=== PATIENT | male | born 1960 | race Caucasian/White ===

== ENCOUNTER 2016-08-15 06:03 | Emergency (ER) | payer OTHER ==
--- NOTE | 2016-08-15 09:48 | PROVIDER DOCUMENTATION ---
HPI-Male Problem - General Chief Complaint: Abscess Stated Complaint: ABSCESS Time Seen by Provider: 08/15/16 09:11 Source: patient Allergies/Adverse Reactions: Patient Allergies Allergy/AdvReac Type Severity Reaction Status Date / Time No Known Allergies Allergy Verified 08/15/16 09:19 Home Medications: Home Medication List Medication Instructions Recorded Confirmed Last Taken Type Lisinopril 10 mg PO DAILY 01/15/13 08/15/16 05/28/16 History Budesonide/Formoterol Fumarate 10.2 gm IH BID 03/26/16 08/15/16 05/28/16 History [Symbicort 160-4.5 Mcg Inhaler] Metformin E.r. [Glucophage Xr] 1,000 mg PO QPM 03/26/16 08/15/16 05/28/16 History Sulfamethoxazole/Trimethoprim 1 each PO BID #14 tablet 08/15/16 Unknown Rx [Bactrim Ds Tablet] - History of Present Illness-Male Nature of Presenting Problem: Pt is a 56 y/o M c chief complaint of sore to the R groin x 3 days. Pt has an extensive urological h/o scrotal swelling and is being followed by Dr. Carrera for a scrotal mass. Pt states his scrotum has not changed since his last visit with Dr. Carrera. Pt denies any nausea, vomiting, fever, chills. On arrival, pt is in minimal distress. Review of Systems - Adult - REVIEW OF SYSTEMS - ADULT Constitutional: reports: no symptoms reported. denies: chills, fatique Eyes: reports: no symptoms reported. denies: blurred vision, double vision Ears, Nose, Mouth & Throat: reports: no symptoms reported. denies: ear pain, nose pain Cardiovascular: reports: no symptoms reported. denies: chest pain, irregular heart rate Respiratory: reports: no symptoms reported. denies: cough, shortness of breath Gastrointestinal: reports: no symptoms reported. denies: abdominal pain, nausea Genitourinary: reports: no symptoms reported. denies: dysuria, hematuria Musculoskeletal: reports: no symptoms reported. denies: joint pain, joint swelling Integumentary: reports: see HPI, skin sores/ulcer. denies: hives, itching, rash Neurological: reports: no symptoms reported. denies: numbness, paresthesia Psychiatric: reports: no symptoms reported. denies: anxiety, emotional problems Endocrine: reports: no symptoms reported. denies: cold intolerance, heat intolerance Hematologic/Lymphatic: reports: no symptoms reported Allergic/Immunologic: reports: no symptoms reported All Other Systems: Reviewed and Negative Past History - Adult - PAST MEDICAL HISTORY-ADULT Review of Records: reports: Old Records Reviewed, Nursing Assessment Review, Medications Reviewed, Social history reviewed & non-contributory. Major Childhood Illnesses: reports: denies history Cardiovascular: reports: HTN Respiratory: reports: COPD Gastrointestinal: reports: denies history Obstetrical/Gynecological: reports: denies history Genitourinary: reports: testicular injury (testicular mass) Musculoskeletal: reports: denies history Neurological: reports: denies history Endocrine/Immune: reports: Diabetes Other Conditions: reports: denies history - IMMUNIZATION STATUS Childhood Immunizations: See Nurse Assessment Flu Vaccine: See Nurse Assessment - FAMILY HISTORY Family History: reviewed, not pertinent - SOCIAL HISTORY Smoking: denies Substance Use: none/never Alcohol Use Frequency: never Living Situation: family Physical Exam-General - PHYSICAL EXAM-ADULT Initial Vital Signs Reviewed: Yes - CONSTITUTIONAL General Appearance: appears well, alert, no apparent distress - EYES Eyes: PERRL/EOMI, pink conjunctivae - HEAD, EARS, NOSE, MOUTH & THROAT HENMT: normocephalic/atraumatic, moist mucous membranes - NECK Neck: non-tender - RESPIRATORY Respiratory: chest non-tender, lungs clear, normal breath sounds - CARDIOVASCULAR Cardiovascular: normal peripheral pulses, regular rate, rhythm, no edema - GASTROINTESTINAL (ABDOMEN) Abdominal Exam: normal bowel sounds, non tender, soft - GENITOURINARY Male Genitalia: circumcised, scrotal swelling (significant scrotal swelling that pt states is unchanged since his last visit with Dr. Carrera.), inguinal tenderness, other (small localiced hair follicle infection in the R groin, mild inguinal lymphadenopathy). negative: erythema, testicular tenderness - LYMPHATIC Lymphatic: no adenopathy - MUSCULOSKELETAL Back Exam: normal inspection, no CVA tenderness, no vertebral tenderness Extremity: normal range of motion, non-tender, normal gait - SKIN Integumentary: normal color, normal turgor, warm/dry - NEUROLOGIC Neurologic: grossly normal, no motor/sensory deficits - PSYCHIATRIC Psych/Mental Status: normal mood/affect, normal thought content, normal thought process, oriented x 3 Progress - PLAN OF CARE/RESULTS Progress/Plan/Lab Results: Orders Category Date Time Status Finger Stick Blood Sugar (ED) DIRECTED Care 08/15/16 09:47 Active Vital Signs - 24 hr 08/15/16 08/15/16 06:06 10:09 Temperature 98.4 F 98.2 F Pulse Rate 85 72 Respiratory 20 18 Rate Blood Pressure 167/92 166/96 O2 Sat by Pulse 100 98 Oximetry Departure - Departure Time of Disposition Order: 09:44 DIAGNOSIS: Local skin infection, Testicular swelling Disposition: HOME 01 Certified Medical Emergency: Emergent Condition: Stable Additional Instructions: ED Follow Up Instructions: You have been treated by a care provider in the Emergency Department. These instructions are being provided to you so you can have an understanding of how to care for yourself upon discharge. Upon discharge from the Emergency Department, you are responsible for making arrangements for follow-up care by a physician of your choice. Take all prescribed medications as directed. Return to the Emergency Department immediately for any new or worsening symptoms. You may call the Physician Referral phone number at [phone] to obtain a list of Physicians who are taking new patients. Prescriptions: Sulfamethoxazole/Trimethoprim [Bactrim Ds Tablet] 1 each PO BID #14 tablet Referrals: Carlitos Carrera MD [STAFF PHYSICIAN] - Call for Appoint. 1-2days (FOLLOW UP WITH DR. CARRERA ON THURSDAY FOR A RE-CHECK OF YOUR SCROTUM.) Forms: Return to School/Parent Work Instructions: Scrotal Swelling, Insect Bite Attestation - Physician/ ELIJAH Attestation Patient care was provided by Advanced Practice Provider:: Yes Advanced Practice Provider:: Marcos Corcoran Advanced Practice Provider documentation review:: The Mid-level provider documentation, treatment plan and medical decision making was reviewed by the physician who agrees with all treatment and medical decision making by the MLP.
[2016-08-15 10:10] VITALS: BP 166/96
== END 2016-08-15 10:16 | disposition home or self-care (01) ==
LOC: ED 06:03
DX: L08.9 Local infection of the skin and subcutaneous tissue, unspecified (principal); N50.89 Other specified disorders of the male genital organs; R59.0 Localized enlarged lymph nodes; I10 Essential (primary) hypertension; J44.9 Chronic obstructive pulmonary disease, unspecified; E11.9 Type 2 diabetes mellitus without complications; Z79.899 Other long term (current) drug therapy
CPT/HCPCS: 82948

== ENCOUNTER 2019-01-05 13:25 | Observation (INO) ==
[2019-01-05] MEDS ORDERED: NEXIUM IV SCH (15:30)
[2019-01-05 16:18] LABS: BASO# 0.06 X1000 (0.0-0.2); BASO% 0.8 % (0.0-0.8); EOS# 0.23 X1000 (0.0-0.7); EOS% 2.9 % (0.0-10.0); HEMATOCRIT 39.9 % (42.0-52.0); HEMOGLOBIN 13.3 g/dL (14.0-18.0); LYMPH# 2.67 X1000 (1.2-3.4); LYMPH% 33.5 % (20.5-51.1); MCH 29.2 PG (27-31); MCHC 33.3 g/dL (33-37); MCV 87.7 FL (81-99); MONO% 7.5 % (1.7-9.3); MPV 10.7 FL (7.4-10.4); NEUT# 4.42 X1000 (1.4-6.5); NEUT% 55.3 % (42.2-75.2); PLT 376 X1000 (130-400); RBC 4.55 XMIL (4.7-6.1); RDW 13.8 % (11.5-14.5); WBC 7.98 X1000 (4.8-10.8)
[2019-01-05 16:26] LABS: INR 0.9; PROTIME 12.8 Seconds (11.0-16.0)
[2019-01-05 16:27] LABS: PTT 26.9 Seconds (22.3-41.8)
[2019-01-05 16:29] LABS: HEMOGLOBIN A1C 5.9 % (4.8-6.0)
[2019-01-05 16:30] LABS: AGAP 12; ALB/GLOB RATIO 1.5; ALBUMIN 4.1 g/dL (3.5-5.0); ALKALINE PHOSPHATASE 93 U/L (32-122); AMYLASE 51 U/L (20-200); BUN 14 mg/dL (8-22); CALCIUM 9.5 mg/dL (8.8-10.2); CHLORIDE 105 mmol/L (98-107); COSMO 282; CREATININE 0.8 mg/dL (0.7-1.2); ESTIMATED GFR > 60; GLUCOSE 110 mg/dL (70-104); GOT 16 U/L (10-34); GPT 16 U/L (10-44); LIPASE 20 U/L (13-60); POTASSIUM 4.1 mmol/L (3.5-5.1); SODIUM 141 mmol/L (136-145); TCO2 24 mmol/L (25-35); TOTAL BILIRUBIN 0.39 mg/dL (0.20-1.00); TOTAL PROTEIN 6.9 g/dL (6.3-8.3)
[2019-01-05] MEDS: NS 1,000 ML IV SCH (16:49)
[2019-01-05 16:52] LABS: URINE SOURCE CLEAN CATCH
[2019-01-05 16:58] LABS: BILIRUBIN URINE NEGATIVE (NEGATIVE); BLOOD URINE SMALL (NEGATIVE); COLOR YELLOW; GLUCOSE URINE NEGATIVE (NEGATIVE); KETONE URINE NEGATIVE (NEGATIVE); LEUKOCYTES URINE NEGATIVE (NEGATIVE); NITRITE URINE NEGATIVE (NEGATIVE); PH URINE 5.5; PROTEIN URINE NEGATIVE (NEGATIVE); SP GRAVITY URINE 1.022; TURBIDITY URINE CLEAR (CLEAR); UR EPITHELIAL CELLS <10 /HPF (<10); URINE BACTERIA NEGATIVE /HPF; URINE RBC <10 /HPF (<10); URINE WBC <10 /HPF (<10); UROBILINOGEN URINE NORMAL (NORMAL)
--- NOTE | 2019-01-05 17:36 | Diag Imaging Result Doc PS360 ---
CT ABDOMEN W/CONTRAST - 01/05/2019 INDICATION: abdominal pain COMPARISON: 07/17/2018 FINDINGS: The lung bases are clear and the heart size is normal. There is stable mild fatty change of the liver. There is a stable benign cyst at the hepatic hilum. Otherwise all abdominal organs are normal. No bowel obstruction or inflammation. Minimal diverticulosis of the descending colon. There are moderate degenerative changes of the spine. No acute or suspicious bony lesion. IMPRESSION: No acute disease or change from prior. Mild fatty liver. Mild diverticulosis coli. This exam was performed using automated exposure control, adjustment of mA or kV according to patient size, and/or use of iterative reconstruction technique Electronically signed by López Fisher 01/05/2019 5:34 PM
--- NOTE | 2019-01-05 17:40 | Diag Imaging Result Doc PS360 ---
ABDOMEN FLAT/UPRIGHT - 01/05/2019 INDICATION: abdominal pain COMPARISON: 09/12/2018 FINDINGS: There is a nonobstructive bowel gas pattern. No free air or abdominal calcifications. No constipation. IMPRESSION: No acute disease. Electronically signed by López Fisher 01/05/2019 5:38 PM
[2019-01-05] MEDS ORDERED: VENTOLIN HFA INH PRN (17:47)
[2019-01-05] MEDS ORDERED: NICODERM PATCH TD ONE (20:44)
[2019-01-05] MEDS ORDERED: DILAUDID IV PRN (20:48)
[2019-01-05] MEDS ORDERED: ZOFRAN IV PRN (20:50)
--- NOTE | 2019-01-05 21:32 | HISTORY AND PHYSICAL ---
CHIEF COMPLAINT: Abdominal pain. HISTORY OF PRESENT ILLNESS: Mr. Philippe is a 58-year-old gentleman, complaining of pain in the abdomen going on for 2 to 3 days. The pain is off and on, moderate in intensity. The patient described pain as a burning stinging pain, at times unbearable, associated with some nausea and sick feeling, but no vomiting. The patient denied any diarrhea. No blood or mucus in the stool. The patient was taking [id number] medication without significant relief. The patient had this pain off and on in the past. He did have a CT scan done, upper and lower GI endoscopy done which revealed significant degenerative disk disease in the lumbar spine and spinal stenosis. The patient had gastritis and diverticular disease of the colon. The patient was crying with the pain in my office. I evaluated the patient and decided to admit him for observation. The patient does have urinary frequency, urgency, but no dysuria or hematuria. He does have polyuria and polydipsia. Denied any diarrhea blood or mucus in the stool. No abdominal distention. No typical chest pain or palpitation. Patient does have chronic cough with scanty sputum production. No hemoptysis. No major weight loss or weight gain. No heat or cold intolerance. The patient denied any focal numbness, tingling or weakness. He does have a history suggestive of BPH and urinary hesitancy. ALLERGIES: No known drug allergy. HOME MEDICATIONS: Includes Prilosec, Neurontin, lisinopril, Flomax. The patient is on Glucophage. PAST MEDICAL HISTORY: NIDDM, hypertension, gastritis, degenerative disk disease in the lower back and cervical spine, gastritis, obesity, anxiety and depression. PERSONAL HISTORY: Single. The patient does smoke. Denied alcohol or substance abuse. FAMILY HISTORY: Noncontributory. REVIEW OF SYSTEMS: As per HPI. PHYSICAL EXAMINATION: GENERAL: Middle-aged white gentleman in mild distress. The rest from the chart. HEENT: Head atraumatic, normocephalic. [place] conjunctivae. Anicteric sclerae. Extraocular muscle movement normal. Fundus cannot be penetrated. Good oral hygiene. No tonsillopharyngeal congestion or exudate. Ears and nose benign. NECK: Supple. No JVD, thyromegaly or lymphadenopathy. CHEST: Bilateral good air entry present. Bibasilar crepitation. Occasional wheezing. No rales or rhonchi. CARDIOVASCULAR: S1 and S2 heard. No gallop or thrill. ABDOMEN: Soft, globular. Bowel sounds present. No organomegaly or mass. Mild epigastric tenderness. No guarding or rigidity. EXTREMITIES: No cyanosis, clubbing. No acute DVT. Peripheral pulsation intact. 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 BACK: Vague tenderness lumbosacral spine. CONSIDERATION: 1. Abdominal pain. Etiology not clear. Differential includes gastritis, pancreatitis. 2. I reviewed his old records. The patient does have a significant degenerative disk disease. Spinal stenosis. Possibility of the radicular pain cannot be ruled out. His other problem includes chronic obstructive pulmonary disease, hypertension, noninsulin-dependent diabetes mellitus, anxiety and depression. PLAN: Admit the patient. We will get a CT scan of the abdomen and pelvis, plain x-ray. Symptomatic treatment. The encourage patient to quit smoking. Overall plan discussed with the patient and he is in agreement. LABORATORY DATA: Revealed WBC count 7.98, hemoglobin 13.3, hematocrit 39.9, platelet count was 376,000. PT/INR 0.9. PTT 26.9. Electrolytes fairly benign. Amylase and lipase were normal. Urinalysis did have small amount of blood. I did CT scan of the abdomen and pelvis. Results reviewed which reveal mild fatty liver, mild diverticulosis coli. No acute disease or changes from prior. The overall plan discussed with the patient and he is in agreement. cc: Willem Florian MD
[2019-01-06] MEDS ORDERED: NICODERM PATCH TD ONE (01:00)
[2019-01-06] MEDS: NS 1,000 ML IV SCH (03:00)
[2019-01-06] MEDS ORDERED: LOVENOX SUBQ SCH (06:00)
[2019-01-06 07:00] LABS: BASO# 0.07 X1000 (0.0-0.2); EOS# 0.32 X1000 (0.0-0.7); EOS% 4.5 % (0.0-10.0); HEMATOCRIT 40.8 % (42.0-52.0); HEMOGLOBIN 13.5 g/dL (14.0-18.0); IMM GRAN# 0.02 X1000 (0.0-0.04); IMM GRAN% 0.3 % (0.0-0.5); LYMPH# 2.33 X1000 (1.2-3.4); LYMPH% 32.8 % (20.5-51.1); MCH 29.2 PG (27-31); MCHC 33.1 g/dL (33-37); MCV 88.1 FL (81-99); MONO# 0.62 X1000 (0.11-0.59); MONO% 8.7 % (1.7-9.3); MPV 10.7 FL (7.4-10.4); NEUT# 3.74 X1000 (1.4-6.5); NEUT% 52.7 % (42.2-75.2); PLT 362 X1000 (130-400); RBC 4.63 XMIL (4.7-6.1); RDW 13.9 % (11.5-14.5)
--- NOTE | 2019-01-06 07:23 | PROGRESS NOTE ---
DATE: 01/06/2019 SUBJECTIVE: Mr. Philippe is still complaining of upper abdominal pain sometimes burning, sometimes a sharp pain. At times, nausea but no vomiting. The patient had multiple ER office visits for similar type of pain. He denied any typical chest pain. No high-grade fever or chills. The patient does have chronic cough. I did CT scan of the abdomen and pelvis, and there was no acute disease. It did show mild fatty liver. The patient had significant degenerative disk disease and spinal stenosis. I am going to get MRI of lumbosacral spine and thoracic spine for further evaluation. OBJECTIVE: His vital signs as noted. Neck: Supple. No JVD. Lungs: Bilateral good air entry present. CVS: S1 and S2 heard. Abdomen: Soft, globular. Bowel sounds present. Extremities: No cyanosis or clubbing. No acute DVT. 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 CONSIDERATION: Patient does have significant degenerative disk disease, spinal stenosis, and chronic abdominal pain. I am entertaining the possibility of radiculopathy. The patient will need further workup in the form of an MRI of her lumbar and thoracic spine. Other problems include COPD, hypertension, and NIDDM. Continue rest of the treatment. Close observation. Fall precaution. After reviewing labs, we will make necessary recommendations. PLAN: Overall plan discussed with the patient, and he is in agreement. cc: Willem Florian MD
[2019-01-06 07:26] LABS: AGAP 9; ALB/GLOB RATIO 1.5; ALBUMIN 4.3 g/dL (3.5-5.0); ALKALINE PHOSPHATASE 99 U/L (32-122); BUN 12 mg/dL (8-22); CALCIUM 9.7 mg/dL (8.8-10.2); CHLORIDE 104 mmol/L (98-107); COSMO 281; CREATININE 0.9 mg/dL (0.7-1.2); ESTIMATED GFR > 60; GLUCOSE 106 mg/dL (70-104); GOT 16 U/L (10-34); GPT 15 U/L (10-44); MAGNESIUM 2.1 mg/dL (1.5-2.7); POTASSIUM 4.2 mmol/L (3.5-5.1); SODIUM 141 mmol/L (136-145); TCO2 28 mmol/L (25-35); TOTAL PROTEIN 7.2 g/dL (6.3-8.3)
[2019-01-06] MEDS ORDERED: BREO ELLIPTA 200/25 MCG INH INH SCH (07:30)
[2019-01-06 07:43] VITALS: BP 134/80
[2019-01-06] MEDS ORDERED: FLOMAX PO SCH (09:00)
[2019-01-06] MEDS ORDERED: PRINIVIL PO SCH (09:00)
[2019-01-06] MEDS ORDERED: NEURONTIN PO SCH ×2 (09:00)
--- NOTE | 2019-01-06 09:31 | Diag Imaging Result Doc PS360 ---
EXAM: MRI LUMBAR SPINE W/O CONTRAST INDICATION: radiculopathy TECHNIQUE: COMPARISON: CT dated 07/17/2018. No prior MRIs available for comparison. FINDINGS: The osseous marrow signal is unremarkable. The conus medullaris is located at T12 and appears normal. Surrounding soft tissues are unremarkable. Segmental analysis of the lumbar spine is detailed below. L1-2: There is a small broad-based disc bulge causing very minimal effacement of the ventral thecal sac. There is no high-grade central canal or neuroforaminal stenosis. An osteophyte extends into the far right lateral space but there is no significant mass effect on the nerve root in the far right lateral space. L2-3: There is a right lateralizing disc osteophyte complex. It extends into the far right lateral space but there is no significant mass effect on the nerve root in the far right lateral space. The central canal and neuroforamina are patent. L3-4: There is a small broad-based disc osteophyte complex. It is causing only mild central canal narrowing and very mild right neuroforaminal narrowing. There is no high-grade central canal or neuroforaminal stenosis. L4-5: There is a small broad-based disc osteophyte complex. However, there is very severe degenerative facet hypertrophy. This is causing very severe central spinal stenosis. This was also seen on the previous CT. There is only mild bilateral neuroforaminal stenosis, however. L5-S1: There is a very small broad-based disc osteophyte complex that is causing minimal effacement of ventral thecal sac. No high-grade central canal or neuroforaminal stenosis is appreciated. IMPRESSION: Multilevel degenerative changes as described that is most significant at L4-5 where there is very severe central spinal stenosis. Electronically signed by Marcos Munguia 01/06/2019 9:29 AM
--- NOTE | 2019-01-06 09:53 | Diag Imaging Result Doc PS360 ---
EXAM: MRI THORACIC SPINE W/O CON INDICATION: radiculopathy TECHNIQUE: COMPARISON: None. FINDINGS: The osseous marrow signal is essentially unremarkable. The thoracic spinal cord signal appears normal. Surrounding soft tissues are unremarkable. Segmental analysis of the thoracic spine reveals a tiny right paracentral protruding disc osteophyte complex at T4-5 and a similar tiny left paracentral protruding disc osteophyte complex at T5-6. Both of these are causing very minimal thecal sac effacement. There is mild flattening of the cord adjacent to these small protrusions suggesting some contact when in a standing position. No high-grade central canal or neuroforaminal stenosis is appreciated. At T6-7, there is an even smaller right paracentral focal disc protrusion causing very minimal effacement of ventral thecal sac with no evidence of cord mass effect. There are ventral marginal osteophytes at several other thoracic levels but there is no evidence of significant central canal or neuroforaminal stenosis at the other thoracic levels. IMPRESSION: Mild degenerative changes as described above. No evidence of high-grade stenosis throughout the thoracic spine, however. Electronically signed by Marcos Munguia 01/06/2019 9:51 AM
== END 2019-01-06 11:52 | disposition home or self-care (01) ==
LOC: DIRADM 13:25 → INTOOBSV 13:25 → 3N 13:29
PROVIDERS: ADMIT Internal Medicine; ATTEND Internal Medicine
CPT/HCPCS: 72146; 72148; 74019; 74020; 74160; 80053; 81001; 82150; 82948; 83036; 83690; 83735; 85025; 85610; 85730; 94640; 94760; 96372; 96374; A9270; G0378; G0379; J1650; J7030; Q9967; XXXXX